=== PATIENT | male | born 1960 ===

== ENCOUNTER 2020-06-21 10:38 | Outpatient (CLI) | payer OTHER, SELFPAY ==
[2020-06-22 14:10] LABS: SARS-CoV-2 RNA PCR Negative
== END 2020-06-21 10:39 | disposition home or self-care (01) ==
LOC: CHSLAB 10:44
PROVIDERS: PCP Family Medicine; Visit Provider Family Medicine
DX: R05 Cough (principal); Z20.828 Contact with and (suspected) exposure to other viral communicable diseases
CPT/HCPCS: 87635; C9803; U0003

== ENCOUNTER 2021-01-30 07:48 | Emergency (ER) | payer OTHER, SELFPAY ==
[2021-01-30 08:15] VITALS: BP 145/96; PULSE 88; RESP 18; TEMP 36.4; O2SAT 99
--- NOTE | 2021-01-30 08:49 | ED.EXTPRO ---
HPI - Extremity Problem General Chief complaint: Extremity Problem,Nontraumatic Stated complaint: right leg pain Time Seen by Provider: 01/30/21 08:20 Source: patient Mode of arrival: ambulatory Limitations: no limitations History of Present Illness HPI Narrative: Patient comes in with back pain which has been relatively mild in severity. He has also has had pain down his right leg to the foot which has been ongoing, and moderately severe, sharp pain over the last several days. It has gone on voer a week. He has not had any pain relief of any significance for several days. He has repeatedly gone to a chiropractor who has not been able to help him much. Therefore he comes in secondary to the pain. MD Complaint: extremity pain Onset (ago): day(s) Pain Consistency: constant Location: right Quality: sharp Relieving factors: nothing Exacerbating factors: nothing Associated symptoms: denies other symptoms Related Data Allergies Allergy/AdvReac Type Severity Reaction Status Date / Time No Known Allergies Allergy Unverified 06/10/15 16:02 Review of Systems Constitutional: Constitutional: Reports no additional constitutional complaints Eyes: Eyes: Reports no additional eye complaints ENT: Reports system reviewed and no additional complaints, except as documented Cardiovascular: Cardiovascular: Reports no additional cardiovascular complaints Respiratory: Respiratory: Reports no additional respiratory complaints Gastrointestinal: Gastrointestinal: Reports no additional gastrointestinal complaints Genitourinary: Genitourinary: Reports no additional male genitourinary complaints Musculoskeletal: Comments: mild back pain recently after activities Integumentary/Breasts: Skin/Breast: Reports system reviewed and no additional complaints, except as docu Neurologic: Reports system reviewed and no additional complaints, except as documented Psychiatric: Psychiatric: Reports no additional psychiatric complaints Endocrine: Endocrine: Reports no additional endocrine complaints Hematologic/Lymphatic: Hematologic/Lymphatic: Reports no additional hematologic/lymphatic complaints Allergic/Immunologic: Allergic/Immunologic: Reports no additional allergic/immunologic complaints [facility] Past Medical History Medical History (Updated 01/31/21 @ 01:45 by Tyson Jauregui MD) No significant medical problems Surgical History Surgical History (Updated 01/31/21 @ 01:45 by Tyson Jauregui MD) H/O shoulder surgery Family History Family History (Updated 01/31/21 @ 01:45 by Tyson Jauregui MD) Mother Mesothelioma Social History Social History (Updated 01/31/21 @ 01:46 by Tyson Jauregui MD) Smoking status: Never smoker Drinks per week: 1 Alcohol use details: rare minimal alcohol use Exam Const: General: no acute distress and alert Orientation/consciousness: patient oriented x3 HENMT: Head: normal to inspection Ears: external ears normal General nose exam: Normal external nose present Mouth: Yes Normal oral and palatal mucosa present Throat: posterior oropharynx normal Eyes: Conjunctivae: conjunctivae normal Neck: Neck: normal visual inspection Chest: Chest palpation & inspection: normal inspection of the chest Resp: Effort & Inspection: normal respiratory effort Auscultation: clear to auscultation bilaterally Cardio: Rate: regular rate Rhythm: regular rhythm GI: GI Palp: Yes Soft to palpation (nontender) Back/Spine/Pelvis: Other: back exam is unremarkable Skin: General skin exam: normal color Neuro: General: patient oriented x3 and moves all extremities Extrem: General: normal to inspection Psych: Appearance: grossly normal Mental Status: mental status grossly normal Thought content: Yes Normal thought content present Course Course Emergency Course: he was given dexamethasone 12 mg and ketorolac 60mg IM. he did appear to be feeling some better prior to discharge. Vital Signs Vital sig
== END 2021-01-30 09:00 | disposition home or self-care (01) ==
PROVIDERS: Emergency Provider Emergency Medicine; PCP Family Medicine
DX: M54.16 Radiculopathy, lumbar region (principal)
CPT/HCPCS: 99283

== ENCOUNTER 2021-02-11 10:06 | Outpatient (CLI) | payer OTHER, SELFPAY ==
--- NOTE | ~2021-02-11 | XR_ITS ---
XR lumbar spine 2-3V DATE: 02/11/2021 10:33 INDICATION: Lumbar radiculopathy, right hip pain TECHNIQUE: AP, lateral, coned lateral lumbosacral views COMPARISON: None FINDINGS: Normal alignment lumbar spine. No fracture or bone destruction or spondylolisthesis. The in cluded lower thoracic and lumbar pedicles are intact. There is moderately severe degenerative disc disease at L5-S1 with mild degenerative disc disease at the remaining lumbar interspaces. The sacroiliac joints are intact. IMPRESSION: Moderately severe degenerative disc disease at L5-S1 and mild degenerative disc disease a t the remaining lumbar interspaces Reviewed, dictated and finalized at location A. IMPRESSION: Moderately severe degenerative disc disease at L5-S1 and mild degen erative disc disease at the remaining lumbar interspaces
--- NOTE | ~2021-02-11 | XR_ITS ---
XR hip RT min 2V DATE: 02/11/2021 10:33 INDICATION: Right hip pain TECHNIQUE: AP and lateral views COMPARISON: None FINDINGS: No fracture or dislocation, avascular necrosis or bone destruction of the right hip. Mild right hip osteoarthritis. There is some benign-appearing sclerosis along the lateral right femoral neck. Normal alignment at the pubic symphysis and right sacroiliac joint. IMPRESSION: Mild right hip osteoarthritis Reviewed, dictated and finalized at location A.
--- NOTE | ~2021-02-11 | XR_ITS ---
XR knee RT 3V 02/11/2021 10:34 INDICATION: Right knee pain PROCEDURE: 3 views right knee COMPARISON: No prior studies for comparison. FINDINGS: Fracture, dislocation or subluxation is not identified. The soft tissues appear within norm al limits. No foreign bodies are identified. IMPRESSION: 1: No significant bone or joint abnormality. Reviewed, dictated and finalized at location A.
== END 2021-02-11 10:07 | disposition home or self-care (01) ==
LOC: CHSIMG 10:08
PROVIDERS: PCP Family Medicine; Visit Provider Family Medicine
DX: M25.551 Pain in right hip (principal); M25.561 Pain in right knee; M54.10 Radiculopathy, site unspecified
CPT/HCPCS: 72100; 73502; 73562

== ENCOUNTER 2021-02-16 16:53 | Outpatient (RCR) | payer OTHER, SELFPAY ==
--- NOTE | 2021-02-23 07:08 | PTOPEVAL ---
Thank you for referring Jemal Yun to [facility].? The patient is scheduled to be seen for therapy? __1__x/week for 6 visits. Please review, sign, date and return this plan of care MIHIR. I agree with and certify that the following plan of care is medically necessary. Referring Physician Date Admitting Provider: Attending Provider: Franco Erickson MD Referring Provider: *PT Outpatient Evaluation Start: 02/16/21 16:56 Freq: Status: Active Protocol: Document 02/16/21 16:57 JAGDISH (Rec: 02/16/21 17:28 [email or web address]) Therapy Assessment Status Assessment Status Assessment Status Evaluation Evaluation Information Problem Diagnosis right knee pain Onset 01/08/21 Subjective Information Pt. reports that he began Query Text:As Reported By Patient/ noting some low back pain Family about 1 month ago. He reports that the pain then radiated into the hip. He states that pain is in the entire right leg but most intense at the knee. He states he has had xray of the hip, back and knee . Pt. reports that pain is not increased by anything imparticular. He reports that pain in the leg will come and go. He states that his goal is to decrease his leg pain. Diagnostic Tests X-Rays For This Problem Yes: L5-S1 severe DDD and OA Prior Level of Function Activity Level (Last 3 Months) Occupation sheet metal work on aircraft Hand Dominance Right Activity of Daily Living Ability Independent Indoor/Home Mobility Independent Community Mobility Independent Stairs Ability Independent Functional Cognition (Planning, Shopping Independent , Taking Medications) Cooking Yes Cleaning Yes Laundry Yes Shopping Yes Driving Yes Pain Assessment Timing of Pain Assessment Timing of Pain Assessment Pre-Treatment Pain Scale Pain Scale Used Numeric (1 - 10) Self Report Pain Assessment Right Leg(s) Reported Pain Level 2 Pain Description Aching,Numbness Pain Frequency Continuous Lowest Pain Intensity 1 Greatest Pain Intensity 9 Pain Aggravating Factors Supine Pain Score Pain Score 2: Self Report Interventions Used Intervention
--- NOTE | 2021-02-24 07:00 | PCPTNOTE ---
On 02/23/21, the student, [Catrina Stephenson, [facility] [[email or web address]]Gordon ], provided care and completed [id number] documentation on this patient. I have reviewed the student's documentation and agree with the findings.
== END 2021-03-09 09:10 | disposition home or self-care (01) ==
LOC: CHSPT 16:53
PROVIDERS: PCP Family Medicine; Visit Provider Family Medicine
DX: M25.561 Pain in right knee (principal)
CPT/HCPCS: 97110; 97161